=== PATIENT | female | born 1975 | race African-American/Black ===

== ENCOUNTER 2023-09-08 10:50 | Outpatient (CLI) | payer OTHER, SELFPAY ==
[2023-09-08 12:11] LABS: Albumin Level 4.3 g/dL (3.5-5.1); Anion Gap 10 mmol/L (4-12); Blood Urea Nitrogen 4 mg/dL (7-17); Calcium 9.2 mg/dL (8.4-10.2); Carbon Dioxide 26 mmol/L (22-30); Chloride 105 mmol/L (98-107); Estimated Glomerular Filt Rate > 60; Glucose 78 mg/dL (65-110); Potassium 4.5 mmol/L (3.4-5.0); Sodium 141 mmol/L (137-145)
[2023-09-08 12:15] LABS: Iron 53 ug/dL (37-170)
[2023-09-08 12:17] LABS: Prealbumin 14.7 mg/dL (17.6-36.0)
[2023-09-08 12:58] LABS: Hemoglobin A1C 4.8 % (<5.7)
[2023-09-12 02:29] LABS: Vitamin B1 6 nmol/L (8-30)
== END 2023-09-08 10:51 | disposition home or self-care (01) ==
PROVIDERS: Visit Provider Surgery Plastic and Reconstructive Surgery
DX: R63.4 Abnormal weight loss (principal)
CPT/HCPCS: 36415; 80048; 82040; 83036; 83540; 84134; 84425

== ENCOUNTER 2023-09-25 01:35 | Day surgery (SDC) | payer OTHER, SELFPAY ==
[2023-09-16 09:57] VITALS: BMI 33.8
--- NOTE | 2023-09-16 09:57 | PC.NURSE ---
Report to the Outpatient Waiting Room, entrance under the green pavilion located off [facility], at time _0600_ on date _[id number]_. Planned Procedure Time: _0730_. Time changes happen often and if your time is changed the preop area will call you the afternoon before. - You and your visitor will be asked to self-screen and do not enter if you have any COVID symptoms. - A mask is optional within the hospital at this time. Patients may have clear liquids (water, carbonated beverages, clear teas, apple juice) until 3 hours prior to surgery with a maximum of 20 ounces. - No food from midnight until time of surgery Take the following medications with a SIP of water the morning of surgery: __None DO NOT STOP ANY OF YOUR OTHER PRESCRIPTION MEDICATIONS PRIOR TO SURGERY ?EXCEPT THE FOLLOWING Medications to discontinue per physician None Date to take last dose Please no make-up, nail uzbek, hairspray, perfume, deodorant, or body powder the day of surgery. No jewelry (including any body piercings) or valuables the day of surgery, leave them at home. Please take a shower or bath the night before, or the morning of, surgery with an antibacterial soap. Wear comfortable, loose fitting clothing. - Jewelry must be removed prior to entering the operating room. Rings and piercings that are not removed may be cut off. - The hospital will not accept responsibility for valuables. - Please leave all valuables, including medications, at home the day of surgery. If you are going home after surgery, a licensed truss driver helper must drive you home. - NO public transportation without another adult if you receive anesthesia. - We recommend that an adult stay with you for 24 hours following discharge. - We also recommend that you do not drive, make important decision, drink alcoholic beverages, or take any drugs that were not prescribed by your health care provider for at least 24 hours after your discharge time. Follow any additional instructions given to you from your surgeon. If you or anyone in your household have experienced Covid symptoms in the past week, please notify your surgeon or the nurse liaison at the phone number below for possible testing. Telephone instructions given to _Raquel_and asked if any additional questions and then verbalized understanding. Patient advised to call surgeon office or pre surgery nurse liaison [phone] if any additional questions.
[2023-09-25] VITALS (8 sets, daily range): BP systolic 125–170; BP diastolic 66–86; PULSE 53–67; RESP 16–18; TEMP 36.1–36.6; O2SAT 100; BMI 32.2
[2023-09-25 06:38] LABS: Urine Cotinine NEGATIVE
--- NOTE | 2023-09-25 07:05 | WPDHPUPDATE1 ---
History and Physical Update Update Date/Time: 09/25/23 07:05 History and Physical has been reviewed, including an updated exam of the patient. There are NO changes in the patient's condition. Risks, benefits, and alternatives have been discussed and questions answered. Patient agrees to proceed with procedure.
--- NOTE | 2023-09-25 07:05 | W.PM.PROC2 ---
Procedure Note - Detailed Date of Procedure 09/25/23 Pre-op Diagnosis skin laxity Post-op Diagnosis Same Procedure Performed Bilateral brachioplasty Surgeon Luis Martel MD Anesthesia General Findings Lipoaspirate: 2,200 cc Tissue removed: 13 cm per arm Description of Procedure Here for the above procedures. Preoperatively risks, benefits, alternatives were discussed again today in extensive detail. I want to be very realistic about the risks involved as well as expectations. Made sure answered all of their questions to satisfaction. They voiced a clear understanding. Consent obtained. Patient was marked in the preoperative holding area with their verification. Taken to the operating placed supine on the operating table. Anesthesia was provided by anesthesiology. Prepped and draped in a standard sterile fashion. Surgical time-out was taken. Stab incisions were made and I tumesced with a tumescent solution. Once adequate time for hemostasis suction lipectomy was with a 5 mm basket cannula based on S.A.F.E. technique. This was completed based on preoperative planning, intraoperative observation, and rolling pinch test which was in full agreement. I completely de-fatted the planned resection area and a strip avulsion technique was completed. Starting proximal to distal a 10 blade was used to excise the intervening skin and this was tacked as we proceed to ensure good closure. This was closed using a 2-0 Quill, 3-0 strata fix, running subcuticular 4-0 Monocryl, and tissue glue. Dressings were placed. Tolerated the procedure well. Taken to the PACU without difficulty. All instrument sponge counts were correct at the end of the case. Estimated Blood Loss 50 Drains No Packing No Pathology None sent Complications No immediate complications Condition Stable Disposition PACU
[2023-09-25] MEDS: ceFAZolin 2 GM/D5W 50 ML 2 GM/50 ML BAG IVPB (07:25)
--- NOTE | 2023-09-25 07:25 | P.PNAN_ITS ---
Anes - Initial Pre Proc Eval Procedure: Operation Date: 09/25/23 07:30 Proposed Procedures p Bilateral Brachioplasty - Luis Martel MD Date/Time: 09/25/23 07:25 Surgeon: Luis Martel MD Pre Op Diagnosis: skin laxity Patient Data Age: 47 Gender: F Height: 1.57 m Weight: 84 kg Allergies Allergy/AdvReac Type Severity Reaction Status Date / Time No Known Allergies Allergy Verified 09/16/23 09:51 Home Medications Medication Instructions Recorded Confirmed Type No Home Medications 09/16/23 09/16/23 History Laboratory Tests 09/25/23 06:25 Cotinine Negative Patient hx anesthesia problems: none Family hx anesthesia problems: none Results Review: All pre-operative results and documents have been reviewed as part of the pre- operative evaluation. PMF Social History Social History Smoking status: Never smoker Living arrangements: with family Spiritual care concerns: No Anes - Eval Final PreProcedure Day of Procedure 09/25/23 07:25 Patient weight: obese Heart: regular rate and rhythm Lungs: clear to auscultation Airway: Mallampati scale class II Neurological: alert and oriented Last oral intake: >/= 8 hours ASA classification: II Emergent: no Anesthetic plan: proceed Anesthesia type and monitoring: general ETT and standard monitoring Results Review: All pre-operative results and documents have been reviewed as part of the pre- operative evaluation. Informed Consent: The patient's anesthetic plan and its attendant risks and benefits were discussed with the patient/family/POA. Questions were solicited and answers provided to the satisfaction of the patient/family/POA.
[2023-09-25] MEDS: LACTATED RINGERS 1,000 ML 30 ML IV CONT ×2 (07:28→10:49)
[2023-09-25] MEDS: TRANEXAMIC ACID 1,000MG/ISO100 1,000 MG/100 ML BAG 200 MG IVPB (07:30)
[2023-09-25] MEDS: fentaNYL CITRATE INJ (*CRX) 100 MCG/2 ML VIAL 25 MCG IV PUSH (11:30)
[2023-09-25] MEDS: ONDANSETRON INJ 4 MG/2 ML VIAL IV PUSH (12:02)
[2023-09-25] MEDS: oxyCODONE HCL (*CRX) 5 MG TAB IR PO (12:38)
== END 2023-09-25 13:05 | disposition home or self-care (01) ==
PROVIDERS: PCP Family Medicine; Visit Provider Surgery Plastic and Reconstructive Surgery
PROC: (CPT 15836; principal; 2023-09-25 07:30)
DX: Z41.1 Encounter for cosmetic surgery (principal); L57.4 Cutis laxa senilis; E66.9 Obesity, unspecified; Z68.32 Body mass index [BMI] 32.0-32.9, adult
CPT/HCPCS: 15878; 15836; 80307; A9270; J0171; J0690; J1100; J2250; J2405; J2704; J3010; J7120

== ENCOUNTER 2025-01-17 12:00 | Outpatient (CLI) | payer OTHER, SELFPAY ==
--- OUTSIDE RECORDS SUMMARY | 2025-01-17 13:27 | XMS_ITS | Clinical Summary ---
Author Organization [facility] Address [address] [place] [address] Care Team Providers Care Electro Plater Name Role Phone Chriss Palomino MD Primary Care Provider [phone] Allergies Active Allergy Reactions Criticality Noted Date Comments Fluconazole Itching Low 05/13/2017 Medications butalbital-acet aminophen-caffe ine (ESGIC) 50-325-40 mg per tablet Take 1 tablet by mouth every 4 (four) hours as needed for headaches 12 tablet 1 Active albuterol HFA (PROVENTIL HFA,VENTOLIN HFA,PROAIR HFA) 90 mcg/actuation inhaler 3 Active tirzepatide (Mounjaro) 2.5 mg/0.5 mL pen injector injection Inject 0.5 mL (2.5 mg total) under the skin every 7 days Every Friday- last dose took on 05/03/2024. Active oxyCODONE (ROXICODONE) 5 mg immediate release tabletIndicatio ns:Pain Take 1 tablet (5 mg total) by mouth every 4 (four) hours as needed for pain 20 tablet 5 Active Active Problems Problem Noted Date Diagnosed Date Closed displaced fracture of middle phalanx of right index finger 05/20/2024 Encounters Date Type Department Care Team Description 12/13/2024 12:45 PM CDT Therapy [facility] [address] [place] [id number] Pratima Castanon, OT Closed displaced fracture of middle phalanx of right index finger, initial encounter (Primary Dx) 12/06/2024 11:00 AM CDT Therapy [facility] [address] [place] [address] Pratima Castanon, OT Closed displaced fracture of middle phalanx of right index finger, initial encounter (Primary Dx) 11/22/2024 11:00 AM CDT Therapy [facility] [address] [place] [address] Pratima Castanon, OT Closed displaced fracture of middle phalanx of right index finger, initial encounter (Primary Dx) 11/16/2024 10:15 AM CDT Therapy [facility] [address] [place] [address] Pratima Castanon, OT Closed displaced fracture of middle phalanx of right index finger, initial encounter (Primary Dx) 11/08/2024 Documentation [facility] OP Physical Therapy [address] [place] [phone] Pratima Castanon, OT No Show 11/02/2024 9:15 AM CDT Therapy [facility] [address] [place] [address] Pratima Castanon, OT Closed displaced fracture of middle phalanx of right index finger, initial encounter (Primary Dx) 10/26/2024 10:45 AM CDT Therapy [facility] [address] [place] [address] Pratima Castanon, OT Closed displaced fracture of middle phalanx of right index finger, initial encounter (Primary Dx) 10/19/2024 Plan of Care Documentation [facility] [address] [place] [address] 10/18/2024 10:00 AM CDT Therapy [facility] [address] [address] Pratima Castanon, OT Pain in right finger(s) (Primary Dx); Personal history of (healed) traumatic fracture from Last 3 Months Immunizations Immunization Administration Dates Next Due Tdap 04/24/2024 Surgical History Surgery Date Site/Laterality Comments CT GUIDED DRAINAGE PERITONEA L OR RETROPERITONEAL FLUID COLLECTION 11/25/2017 N/A SECTION 03/17/1998 - 03/16/1999 REDUCTION MAMMAPLASTY 03/17/1996 - 03/16/1997 Bilateral ABDOMINOPLASTY 03/17/2017 - 03/16/2018 tummy tuck BRACHIOPLASTY 03/17/2023 - 03/16/2024 Bilateral Medical History Medical History Date Comments Closed displaced fracture of middle phalanx of f jim Headache Obesity Family History Medical History Relation Name Comments Breast cancer Neg Hx Social History Tobacco Use Types Packs/Day Years Used Date Smoking Tobacco: Never Smokeless Tobacco: Never Tobacco Cessation:Counseling Given: Not Answered AUDIT-C Answer Date Recorded Q1: How often do you have a drink containing alcohol? Never 05/26/2024 Q2: How many drinks containi ng alcohol do you have on a typical day when you are drinking? Patient does not drink Q3: How often do you have si x or more drinks on one occasion? Never 05/26/2024 Personal Safety Answer Date Recorded Have you ever been in or are you currently in a harmful physical or emotional relationship or is someone making you feel afraid or unsafe? 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 Gender Identity Not on file Sexual Orientation Not on file Obstetrics History Para Term AB IAB SAB Ectopic Multiple Livin g Live Births 1 1 1 Date Outcome GA Total Labor Labor/2nd/3rd Weight Sex Type Anes PTL Talia A1 A5 Name Clin Term Last Filed Vital Signs Vital Sign Reading Time Taken Comments Blood Pressure 139/69 05/26/2024 4:30 PM CDT Pulse 54 05/26/2024 4:30 PM CDT Temperature 36.2 C (97.2 F) 05/26/2024 4:15 PM CDT Respiratory Rate 16 05/26/2024 4:30 PM CDT Oxygen Saturation 99% 05/26/2024 4:30 PM CDT Inhaled Oxygen Concentration - - Weight 87.6 kg (193 lb 3.2 oz) 05/26/2024 11:49 AM CDT Height 157.5 cm (5' 2) 05/26/2024 11:49 AM CDT Body Mass Index 35.34 05/26/2024 11:49 AM CDT Plan of Treatment Health Maintenance Due Date Last Done Comments Colon Cancer Screening-Colonoscopy 1976 Depression Screening 1976 Hepatitis C Screening 1976 Hepatitis B Screening 1994 Regular Well Visit/Exam 18-64 1994 Cervical Cancer Screening 04/17/20182017, 09/01/2015 Covid-19 Vaccine ( - 2024-2 6 season) 2024 08/02/2020, 07/12/2020 Influenza Vaccine (#1) 2024 12/15/2016 Breast Cancer Screening-Mammogram 06/03/2025 06/03/2024, 06/03/2024, 06/03/2024 DTaP/Tdap/Td Vaccine (2 - Td or Tdap) 04/24/2034 04/24/2024 Pneumococcal vaccine <65 Aged Out No longer eligible based on patient's age to complete this topic Procedures Procedure Name Priority Date/Time Associated Diagnosis Comments SCREENING MAMMOGRAM BILATERAL W MACK Schedule Routine, Read Routine (OP Routine) 06/03/2024 9:30 AM CDT Encounter for screening mammogram for malignant neoplasm of breast THINPREP PAP Routine 09/01/2015 1:40 PM CDT from Last 3 Months or Most Recently Relevant to Health Maintenance Results * (ABNORMAL) Screening Mammogram Bilateral W Mack (06/03/2024 9:30 AM CDT) Anatomical Region Laterality Modality Breast Bilateral Mammography Impressions 06/03/2024 12:11 PM CDT BI-RADS ATLAS category (overall): 0 - Incomplete: Needs Additional Imaging Evaluation 1. Indeterminate right breast finding as above. Further evaluation with diagnostic right mammography and possible diagnostic right breast ultrasound is recommended. 2. No mammographic evidence of malignancy in the left breast. Routine screening mammography of the left breast is recommended in 1 year. The patient has been or will be contacted. Narrative 06/03/2024 12:11 PM CDT Screening Mammogram Bilateral W Mack: 06/03/24 The study was acquired using full field digital technology and interpreted from soft copy. 2D digital mammographic views, as well as 3D digital tomosynthesis were performed in the CC and MLO projections. This study was resulted using Computer-Aided Detection (CAD). CLINICAL: Encounter for screening mammogram for malignant neoplasm of breast. No relevant medical history has been documented for this patient. History of breast cancer in Neg Hx. No comparisons were made when reading this study. BREAST TISSUE: The breasts are almost entirely fatty. FINDINGS: There is a focal asymmetry at the 5 o'clock position of the right breast, middle depth. No other suspicious masses, suspicious calcifications, or other suspicious findings are seen within either breast. us Chriss Palomino MD IMG MAMMO PROCEDURES Final R esult * ThinPrep Pap (09/01/2015 1:40 PM CDT) Thin Prep Pap Smear SEE BELOW () 09/05 6:19 PM CDT [facility] HISTORICAL RESULTS Comment: Rivet Tapping Machine Operator ThinPrep Cytology Final Report ThinPrep Pap Specimen Source Cervix/Endocervix Specimen Adequacy Satisfactory for interpretation, endocervical cells (transformation zone) not present. Interpretation Negative for intraepithelial lesion or malignancy. Shift in shelley suggestive of bacterial vaginosis. 09/06/15 Rug Repairer: SACHA Oconnell(ASCP) Reviewed by: JOHANNA 09/06/15 Verified By: SACHA Estevez(ASCP) electronic signature [facility], Department of Pathology [address] [place] [id number] For questions regarding this case, call ext. [phone] CPT Code(s) 63222 Clinical History LMP: [id number] : N : N IUD: N Hormone Therapy: N Postmenopausal: N Previous surgery date and type: N Hysterectomy: N Chemotherapy: N ZARA Exposure: N Radiation: N Previous Abnormal Pap? Details: N Diagnostic or Screening Pap Test: Screening Performed by [facility], [address] [place] [id number] [email or web address], Aden Thomas MD - Lab. Director 09/01/2015 1:40 PM CDT 09/01/2015 1:45 PM CDT us Camila Boswell NP LAB PATHOLOGY ORDERABLES Final Result [facility] HISTORICAL RESULTS from Last 3 Months or Most Recently Relevant to Health Maintenance Insurance AETNA [facility] Care Teams Electro Plater Relationship Specialty Start Date End Date Chriss Palomino MD [address] [facility] [address] [place], [place] [id number] PCP - General Family Practice 04/24/23
[2025-01-17 14:26] LABS: Hematocrit 38.9 % (37.0-47.0); Hemoglobin 12.0 g/dL (12.0-15.0); Mean Corpuscular HGB Conc 30.8 g/dl (32-36); Mean Corpuscular Hemoglobin 27.2 pg (26-34); Mean Corpuscular Volume 88.2 fl (80-100); Platelet Count Result 297 k/mm3 (150-375); Red Blood Count 4.41 M/mm3 (4.2-5.4); White Blood Count 6.2 K/mm3 (4.5-10.0)
[2025-01-17 14:45] LABS: Albumin Level 4.3 g/dL (3.5-5.1); Anion Gap 8 mmol/L (4-12); Blood Urea Nitrogen 7 mg/dL (7-17); Calcium 9.4 mg/dL (8.4-10.2); Carbon Dioxide 26 mmol/L (22-30); Chloride 105 mmol/L (98-107); Estimated Glomerular Filt Rate > 60; Glucose 76 mg/dL (65-110); Iron 50 ug/dL (37-170); Potassium 3.8 mmol/L (3.4-5.0); Sodium 139 mmol/L (137-145)
[2025-01-17 14:52] LABS: Prealbumin 15.4 mg/dL (17.6-36.0)
[2025-01-17 15:39] LABS: Vitamin B12 922.0 pg/mL (239-931)
[2025-01-20 07:10] LABS: Copper, Serum or Plasma 199 ug/dL (80-158)
[2025-01-21 19:08] LABS: Vit. B1, Whole Blood 106.3 nmol/L (66.5-200.0)
== END 2025-01-17 12:01 | disposition home or self-care (01) ==
LOC: ANHLAB 12:05
PROVIDERS: PCP Family Medicine; Visit Provider Surgery Plastic and Reconstructive Surgery
DX: R63.4 Abnormal weight loss (principal)
CPT/HCPCS: 36415; 80048; 82040; 82525; 82607; 83540; 84134; 84425; 85027

== ENCOUNTER 2025-02-04 08:50 | Day surgery (SDC) | payer OTHER, SELFPAY ==
[2024-12-15 10:09] VITALS: BMI 32.9
[2025-02-04] VITALS (8 sets, daily range): BP systolic 126–154; BP diastolic 67–77; PULSE 69–75; RESP 10–18; TEMP 35.8–37.1; O2SAT 100
--- OUTSIDE RECORDS SUMMARY | 2025-02-04 08:57 | XMS_ITS | Clinical Summary ---
Author Organization [facility] Address [address] [place] [address] Care Team Providers Care Metal Mover Name Role Phone Chriss Palomino MD Primary Care Provider [phone] Allergies Active Allergy Reactions Criticality Noted Date [...] Team Description 12/13/2024 12:45 PM CDT Therapy [facility] [address] [place] [id number] Pratima Castanon, OT Closed displaced fracture of middle phalanx of right index finger, initial encounter (Primary Dx) 12/06/2024 11:00 AM CDT Therapy [facility] [address] [place] [address] Pratima Castanon, OT Closed displaced fracture of middle phalanx of right index finger, initial encounter (Primary Dx) 11/22/2024 11:00 AM CDT Therapy [facility] [address] [place] [address] Pratima Castanon, OT Closed displaced fracture of middle phalanx of right index finger, initial encounter (Primary Dx) 11/16/2024 10:15 AM CDT Therapy [facility] [address] [place] [address] Pratima Castanon, OT Closed displaced fracture of middle phalanx of right index finger, initial encounter (Primary Dx) 11/08/2024 Documentation [facility] OP Physical Therapy [address] [place] [id number] Pratima Castanon, OT No Show from Last 3 Months Immunizations Immunization Administration [...] on file 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 Interpretation Negative for intraepithelial lesion or malignancy. Shift in shelley suggestive of bacterial vaginosis. 09/06/15 Ground Worker: Austni Clemons, CT(ASCP) Reviewed by: JOHANNA 09/06/15 Verified By: Camryn Gaffney CT(ASCP) electronic signature [facility], Department of Pathology [address] [place], [place] [id number] For questions regarding this case, call ext. [phone] CPT Code(s) 47686 Clinical History LMP: [id number] : N : N IUD: N Hormone Therapy: N Postmenopausal: N Previous surgery date and type: N Hysterectomy: N Chemotherapy: N ZARA Exposure: N Radiation: N Previous Abnormal Pap? Details: N Diagnostic or Screening Pap Test: Screening Performed by [facility], [address] [place] [address] [email or web address], Aden Thomas MD - Lab. Director 09/01/2015 1:40 PM CDT 09/01/2015 1:45 PM CDT us Camila Boswell SPORTS ANALYST LAB PATHOLOGY ORDERABLES Final Result [facility] [id number] HISTORICAL RESULTS from Last 3 Months or Most Recently Relevant to Health Maintenance Insurance AETNA [facility] Care Teams Metal Mover Relationship Specialty Start Date End Date Chriss Palomino MD [address] [facility] [address] [place] [address] PCP - General Family Practice 04/24/23
[2025-02-04] MEDS: LACTATED RINGERS 1,000 ML 30 ML IV CONT ×2 (09:35→13:41)
[2025-02-04] MEDS: TRANEXAMIC ACID 1,000 MG/10 ML AMPUL 1000 MG IV PUSH (09:53)
--- NOTE | 2025-02-04 10:14 | WPDHPUPDATE1 ---
History and Physical Update Update Date/Time: 02/04/25 10:14 History and Physical has been reviewed, including an updated exam of the patient. There are NO changes in the patient's condition. Risks, benefits, and alternatives have been discussed and questions answered. Patient agrees to proceed with procedure.
--- NOTE | 2025-02-04 10:28 | W.PM.PROC2 ---
Procedure Note - Detailed Date of Procedure 02/04/25 Pre-op Diagnosis Skin Laxity Post-op Diagnosis Same Procedure Performed Bilateral brachioplasty Surgeon Luis Martel MD Anesthesia General Indications History of brachioplasty now with laxity and would like to proceed with repeat brachioplasty understanding the limitations of this procedure and the complications associated espescially considering this is a repeat procedure. Findings [id number]: 1,500 cc Description of Procedure Here for the above procedures. Preoperatively risks, benefits, alternatives were discussed again today in extensive detail. I want to be very realistic about the risks involved as well as expectations. Made sure answered all of their questions to satisfaction. They voiced a clear understanding. Consent obtained. Patient was marked in the preoperative holding area with their verification. Taken to the operating placed supine on the operating table. Anesthesia was provided by anesthesiology. Prepped and draped in a standard sterile fashion. Surgical time-out was taken. Stab incisions were made and I tumesced with a tumescent solution. Once adequate time for hemostasis suction lipectomy was with a 4 mm basket cannula based on S.A.F.E. technique. This was completed based on preoperative planning, intraoperative observation, and rolling pinch test which was in full agreement. I completely de-fatted the planned resection area and a strip avulsion technique was completed. Starting proximal to distal a 10 blade was used to excise the intervening skin and this was tacked as we proceed to ensure good closure. This was closed using a 2-0 Quill, 3-0 strata fix, running subcuticular 4-0 Monocryl, and tissue glue. Dressings were placed. Tolerated the procedure well. Taken to the PACU without difficulty. All instrument sponge counts were correct at the end of the case. Estimated Blood Loss 30 Drains No Packing No Pathology None sent Complications No immediate complications Condition Stable Disposition PACU
--- NOTE | 2025-02-04 10:34 | WPDANESEPPF ---
Anes - Initial Pre Proc Eval Procedure: Operation Date: 02/04/25 10:20 Proposed Procedures p Revision Bilateral Brachioplasty with Liposuction - Luis Martel MD Date/Time: 02/04/25 10:34 Surgeon: Luis Martel MD Pre Op Diagnosis: Skin Laxity Patient Data Age: 49 Gender: F Height: 1.57 m Weight: 88.6 kg Last Vital Signs Temp 98.7 F 02/04/25 09:10 Pulse 73 02/04/25 09:10 Resp 18 02/04/25 09:10 BP 126/68 02/04/25 09:10 Pulse Ox 100 02/04/25 09:10 O2 Del Method Room Air 02/04/25 09:10 Allergies Allergy/AdvReac Type Severity Reaction Status Date / Time No Known Allergies Allergy Verified 02/04/25 09:12 Home Medications ?Medication ?Instructions ?Recorded ?Confirmed ?Type multivitamin (Daily Multi-Vitamin 1 tablet PO DAILY 01/20/25 02/04/25 History tablet) Patient hx anesthesia problems: none Family hx anesthesia problems: none Results Review: All pre-operative results and documents have been reviewed as part of the pre-operative evaluation. [facility] Social History Social History Smoking status: Never smoker Substance use: current Substance use type: marijuana Other substance usage details: SMOKES ONCE A WEEK Last use: 01-08-25 Living arrangements: with family Spiritual care concerns: No Anes - Eval Final PreProcedure Day of Procedure 02/04/25 10:34 Heart: regular rate and rhythm Lungs: clear to auscultation Airway: Mallampati scale class II Neurological: alert and oriented Last oral intake: >/= 8 hours ASA classification: II Anesthetic plan: proceed Anesthesia type and monitoring: general Results Review: All pre-operative results and documents have been reviewed as part of the pre-operative evaluation. Informed Consent: The patient's anesthetic plan and its attendant risks and benefits were discussed with the patient/family/POA. Questions were solicited and answers provided to the satisfaction of the patient/family/POA.
[2025-02-04] MEDS: ceFAZolin SODIUM 2 GM/20 ML SW SYRINGE IV PUSH (10:38)
--- NOTE | 2025-02-04 13:06 | SUR.OPER ---
Liposuction waste: 1500cc
[2025-02-04] MEDS: oxyCODONE HCL (*CRX) 5 MG TAB IR PO (14:37)
== END 2025-02-04 15:02 | disposition home or self-care (01) ==
PROVIDERS: Visit Provider Surgery Plastic and Reconstructive Surgery
PROC: (CPT 15836; principal; 2025-02-04 10:20)
DX: Z41.1 Encounter for cosmetic surgery (principal); L57.4 Cutis laxa senilis
CPT/HCPCS: 15878; 15836; J3290